=== PATIENT | female | born 1950 | race Two or more races ===

== ENCOUNTER 2023-04-22 16:28 | Inpatient (IN) | payer OTHER ==
[~2023-04-22] VITALS: Ht 162.6 cm; Wt 49.8 kg
[2023-04-22 17:53] VITALS: PULSE 77; RESP 14; O2SAT 87
[2023-04-22 18:10] LABS: Basophils # (auto) 0 10 ^3/uL (0-0.2); Basophils % (auto) 0.2 % (0.0-2.0); Eosinophils # (auto) 0 10 ^3/uL (0-0.8); Eosinophils % (auto) 0.2 % (0.0-7.0); Hematocrit 46.2 % (36.0-46.0); Hemoglobin 15.4 g/dL (12.2-16.2); Lymphocytes # (auto) 1.3 10 ^3/uL (0.4-5.4); Mean Corpuscular Hemoglobin 31.4 pg (28.0-32.0); Mean Corpuscular Hgb Conc. 33.5 g/dL (32.0-36.0); Monocytes # (auto) 1.1 10 ^3/uL (0-1.3); Monocytes % (auto) 14.1 % (0.0-12.0); Neutrophils # (auto) 5.3 10 ^3/uL (1.6-8.6); Neutrophils % (auto) 68.5 % (37.0-80.0); Nucleated Red Blood Cells % 0.1 %; Red Blood Cells 4.91 10^6/uL (4.0-5.20); Red Cell Distribution Width 14.3 % (11.8-14.3); White Blood Cell 7.8 10^3/uL (4.4-10.8)
[2023-04-22 18:24] LABS: INR 0.97 (0.9-1.15); Partial Thromboplastin Time 34.4 SEC (24.5-34.5); Prothrombin Time 10.2 sec (9.3-11.8)
[2023-04-22 18:30] LABS: Alanine Aminotransferase 26 U/L (7-40); Albumin 4.9 g/dL (3.2-4.8); Alkaline Phosphatase 59 U/L (46-116); Anion Gap 13 (5-15); Aspartate Aminotransferase 34 U/L (13-40); BUN/Creatinine Ratio 12.4 (10.0-20.0); Bilirubin, Total 0.5 mg/dL (0.2-1.0); Blood Urea Nitrogen 20 mg/dL (9-23); Calcium 9.6 mg/dL (8.7-10.4); Carbon Dioxide 27 mmol/L (20-30); Chloride 96 mmol/L (98-107); Glucose 94 mg/dL (74-106); Lipase 40 U/L (12-53); Potassium 3.9 mmol/L (3.5-5.1); Sodium 136 mmol/L (136-145); Total Protein 7.6 g/dL (5.7-8.2)
[2023-04-22] MEDS ORDERED: ACETAMINOPHEN 500 MG TAB PO PRN (19:30)
[2023-04-22] MEDS ORDERED: REMDESIVIR PER PHARMACY 0 ML IV SCH (19:30)
[2023-04-22] MEDS ORDERED: ALBUTEROL SULF HFA 90MCG INH 200DOSE IN PRN (19:30)
[2023-04-22 19:43] VITALS: PULSE 77; RESP 16; O2SAT 100
[2023-04-22 20:02] VITALS: BP 131/104; PULSE 77; RESP 16; O2SAT 97
[2023-04-22 20:09] LABS: Magnesium 2.3 mg/dL (1.6-2.6)
[2023-04-22 20:14] LABS: Thyroid Stimulating Hormone 2.36 uIU/mL (0.358-3.74)
[2023-04-22 20:18] LABS: Rapid Influenza A Negative (Negative); Rapid Influenza B Negative (Negative)
[2023-04-22 20:23] LABS: COVID19 ANTIGEN SOFIA FIA POSITIVE (NEGATIVE)
[2023-04-22 20:37] LABS: CRP High Sensitivity 1.47 mg/dL (<1.0)
[2023-04-22] MEDS ORDERED: ONDANSETRON HCL 4 MG/2 ML VIAL IV ONE ×2 (21:15→22:30)
[2023-04-22] MEDS ORDERED: PANTOPRAZOLE 40 MG/10 ML VIAL INJ IV ONE (21:15)
[2023-04-22 21:17] LABS: Basophils # (auto) 0 10 ^3/uL (0-0.2); Basophils % (auto) 0.3 % (0.0-2.0); Eosinophils # (auto) 0 10 ^3/uL (0-0.8); Hematocrit 46.9 % (36.0-46.0); Hemoglobin 15.7 g/dL (12.2-16.2); Lymphocytes # (auto) 0.8 10 ^3/uL (0.4-5.4); Lymphocytes % (auto) 13.4 % (10.0-50.0); Mean Corpuscular Hemoglobin 31.6 pg (28.0-32.0); Mean Corpuscular Hgb Conc. 33.4 g/dL (32.0-36.0); Mean Corpuscular Volume 94.7 fL (80.0-100.0); Monocytes # (auto) 0.4 10 ^3/uL (0-1.3); Monocytes % (auto) 7.1 % (0.0-12.0); Neutrophils # (auto) 4.7 10 ^3/uL (1.6-8.6); Neutrophils % (auto) 79.2 % (37.0-80.0); Red Blood Cells 4.95 10^6/uL (4.0-5.20); Red Cell Distribution Width 14.2 % (11.8-14.3); White Blood Cell 5.9 10^3/uL (4.4-10.8)
[2023-04-22 21:47] LABS: Urine Bacteria FEW /hpf (None Seen); Urine Blood 1+ /uL (Negative); Urine Clarity HAZY (Clear); Urine Color Yellow (Yellow); Urine Protein, UAD 1+ (Negative); Urine Specific Gravity 1.017 (1.001-1.035); Urine Urobilinogen Normal (Negative); Urine WBC 29 /hpf (0 - 5)
[2023-04-22] MEDS ORDERED: ONDANSETRON HCL 4 MG/2 ML VIAL IV PRN (22:00)
[2023-04-22] MEDS ORDERED: ACETAMINOPHEN 325 MG TAB PO PRN (22:00)
[2023-04-22] MEDS ORDERED: TEMAZEPAM 15 MG CAP PO PRN (22:00)
[2023-04-22] MEDS ORDERED: MORPHINE SULFATE INJ 2 MG/ml SYRG IV PRN (22:00)
[2023-04-22] MEDS: CARVEDILOL 3.125 MG TAB PO SCH ×2 (22:00→23:00)
[2023-04-22] MEDS ORDERED: NITROGLYCERIN 0.4 MG SL TAB SL PRN (22:00)
[2023-04-22] MEDS ORDERED: SODIUM CHLORIDE 0.9% 1,000 ML IV ONE (22:30)
[2023-04-22] MEDS ORDERED: METOCLOPRAMIDE HCL 5MG/ml INJ 2ml VIAL IV ONE (22:30)
[2023-04-22 23:00] VITALS: O2SAT 98
[2023-04-23 00:32] LABS: Base Excess -3.2 mmol/L (-2.0-2.0)
[2023-04-23 06:15] VITALS: O2SAT 99
[2023-04-23 06:30] LABS: Basophils # (auto) 0 10 ^3/uL (0-0.2); Basophils % (auto) 0.2 % (0.0-2.0); Eosinophils # (auto) 0 10 ^3/uL (0-0.8); Hematocrit 41.6 % (36.0-46.0); Hemoglobin 13.5 g/dL (12.2-16.2); Lymphocytes # (auto) 1.2 10 ^3/uL (0.4-5.4); Lymphocytes % (auto) 24.7 % (10.0-50.0); Mean Corpuscular Hemoglobin 30.9 pg (28.0-32.0); Mean Corpuscular Hgb Conc. 32.5 g/dL (32.0-36.0); Mean Corpuscular Volume 95.1 fL (80.0-100.0); Monocytes # (auto) 0.7 10 ^3/uL (0-1.3); Monocytes % (auto) 14.3 % (0.0-12.0); Neutrophils % (auto) 60.8 % (37.0-80.0); Nucleated Red Blood Cells % 0.2 %; Red Blood Cells 4.37 10^6/uL (4.0-5.20); Red Cell Distribution Width 14.1 % (11.8-14.3)
[2023-04-23 06:48] LABS: Alanine Aminotransferase 22 U/L (7-40); Albumin 3.8 g/dL (3.2-4.8); Alkaline Phosphatase 47 U/L (46-116); Anion Gap 11 (5-15); Aspartate Aminotransferase 29 U/L (13-40); BUN/Creatinine Ratio 16.4 (10.0-20.0); Bilirubin, Total 0.3 mg/dL (0.2-1.0); Blood Urea Nitrogen 28 mg/dL (9-23); Calcium 8.1 mg/dL (8.7-10.4); Carbon Dioxide 23 mmol/L (20-30); Chloride 103 mmol/L (98-107); Glucose 75 mg/dL (74-106); Potassium 4.2 mmol/L (3.5-5.1); Sodium 137 mmol/L (136-145); Total Protein 6.1 g/dL (5.7-8.2)
[2023-04-23] MEDS ORDERED: REMDESIVIR 200 MG in NS 210ml LOADING DOSE ADULT IV ONE (08:00)
[2023-04-23 08:52] VITALS: PULSE 69; O2SAT 98
[2023-04-23] MEDS: ZINC SULFATE 220mg CAP or TAB PO SCH (10:00)
[2023-04-23] MEDS: SERTRALINE HCL 50 MG TAB PO SCH (10:00)
[2023-04-23] MEDS ORDERED: DexAMETHasone SOD PHOS 10MG/1ML VIAL INJ IV SCH (10:00)
[2023-04-23] MEDS ORDERED: ENOXAPARIN SOD 40 MG/0.4 ML SYRINGE SC SCH (10:00)
[2023-04-23] MEDS ORDERED: ASCORBIC ACID 1,000 MG TAB PO SCH (10:00)
[2023-04-23] MEDS ORDERED: CHOLECALCIFEROL (VITD3) 2,000 UNIT CAP/TAB PO SCH (10:00)
[2023-04-23] MEDS: CARVEDILOL 3.125 MG TAB PO SCH ×2 (11:11→22:00)
[2023-04-23] MEDS ORDERED: dilTIAZem 25 MG/5 ML VIAL IV ONE (12:15)
[2023-04-23] MEDS: SODIUM CHLORIDE 0.9% 1,000 ML IV SCH (14:43)
[2023-04-23 15:35] VITALS: PULSE 63; RESP 13; O2SAT 95
[2023-04-23] MEDS: ALBUTEROL SULF HFA 90MCG INH 200DOSE IN SCH ×2 (15:35→18:35)
[2023-04-23 18:35] VITALS: PULSE 62; RESP 14; O2SAT 95
[2023-04-23 19:41] VITALS: PULSE 63; RESP 18; O2SAT 98
[2023-04-23] MEDS: ATORVASTATIN 20 MG TAB PO SCH (22:08)
[2023-04-23] MEDS: ASCORBIC ACID 500 MG TAB PO SCH (22:08)
[2023-04-24] VITALS (7 sets, daily range): BP systolic 117; BP diastolic 67; PULSE 58–72; RESP 12–20; TEMP 98.7; O2SAT 94–98
[2023-04-24] MEDS: SODIUM CHLORIDE 0.9% 1,000 ML IV SCH ×2 (03:39→16:55)
[2023-04-24 05:01] LABS: Basophils # (auto) 0 10 ^3/uL (0-0.2); Basophils % (auto) 0.2 % (0.0-2.0); Eosinophils # (auto) 0 10 ^3/uL (0-0.8); Hematocrit 39.8 % (36.0-46.0); Hemoglobin 13.4 g/dL (12.2-16.2); Lymphocytes % (auto) 23.6 % (10.0-50.0); Mean Corpuscular Hemoglobin 31.5 pg (28.0-32.0); Mean Corpuscular Hgb Conc. 33.6 g/dL (32.0-36.0); Monocytes # (auto) 0.6 10 ^3/uL (0-1.3); Monocytes % (auto) 14.4 % (0.0-12.0); Neutrophils # (auto) 2.6 10 ^3/uL (1.6-8.6); Neutrophils % (auto) 61.8 % (37.0-80.0); Nucleated Red Blood Cells % 0.2 %; Red Blood Cells 4.24 10^6/uL (4.0-5.20); Red Cell Distribution Width 14.2 % (11.8-14.3); White Blood Cell 4.2 10^3/uL (4.4-10.8)
[2023-04-24 05:24] LABS: Alanine Aminotransferase 19 U/L (7-40); Albumin 3.8 g/dL (3.2-4.8); Alkaline Phosphatase 44 U/L (46-116); Anion Gap 4 (5-15); Aspartate Aminotransferase 28 U/L (13-40); Blood Urea Nitrogen 25 mg/dL (9-23); Calcium 8.4 mg/dL (8.7-10.4); Carbon Dioxide 27 mmol/L (20-30); Chloride 107 mmol/L (98-107); Glucose 88 mg/dL (74-106); Magnesium 2.1 mg/dL (1.6-2.6); Potassium 4.4 mmol/L (3.5-5.1); Sodium 138 mmol/L (136-145)
[2023-04-24 05:25] LABS: Bilirubin, Total 0.2 mg/dL (0.2-1.0); Total Protein 5.9 g/dL (5.7-8.2)
[2023-04-24] MEDS: ALBUTEROL SULF HFA 90MCG INH 200DOSE IN SCH ×3 (06:00→22:29)
[2023-04-24] MEDS: ENOXAPARIN SOD 30 MG/0.3 ML SYRINGE SC SCH (10:00)
[2023-04-24] MEDS ORDERED: LORazepam 2MG/ML-1ML VIAL IV PRN (10:00)
[2023-04-24] MEDS: CHOLECALCIFEROL (VITD3) 1,000UNIT=25mCg TAB PO SCH (10:09)
[2023-04-24] MEDS: DexAMETHasone SOD PHOS 10MG/1ML VIAL INJ IV SCH (10:09)
[2023-04-24] MEDS: SERTRALINE HCL 50 MG TAB PO SCH (10:09)
[2023-04-24] MEDS: ASCORBIC ACID 500 MG TAB PO SCH ×2 (10:09→22:49)
[2023-04-24] MEDS: ZINC SULFATE 220mg CAP or TAB PO SCH (10:09)
[2023-04-24] MEDS: CARVEDILOL 3.125 MG TAB PO SCH ×2 (10:16→22:48)
[2023-04-24 11:46] LABS: LDL Cholesterol 29 mg/dL (< 100); Triglycerides 70 mg/dL (< 150)
[2023-04-24 11:48] LABS: Cholesterol 72 mg/dL (< 200); HDL Cholesterol 27 mg/dL (40-59)
[2023-04-24 12:06] LABS: Folate (Folic Acid) 16.35 ng/mL (>5.38)
[2023-04-24] MEDS ORDERED: ALBU1AER4 INH (12:51)
[2023-04-24] MEDS ORDERED: HYDR-4072 PO (12:51)
[2023-04-24] MEDS ORDERED: MONT-8 PO (12:51)
[2023-04-24] MEDS ORDERED: CARV3.1240 PO (12:51)
[2023-04-24] MEDS ORDERED: SERT25TA28 PO (12:51)
[2023-04-24] MEDS ORDERED: ROSU1TAB12 PO (12:51)
[2023-04-24 19:45] LABS: Free T3 1.45 pg/mL (2.3-4.2); Free T4 (Free Thyroxine) 0.87 ng/dL (0.89-1.76)
[2023-04-24] MEDS: REMDESIVIR 100mg 100 MG in SODIUM CHL 0.9% 230 ML IV SCH (19:54)
[2023-04-24] MEDS: ATORVASTATIN 20 MG TAB PO SCH (22:49)
[2023-04-25] VITALS (8 sets, daily range): BP systolic 137–142; BP diastolic 61–74; PULSE 58–78; RESP 15–20; TEMP 97.5–98; O2SAT 96–100
[2023-04-25] MEDS ORDERED: HYDROcodone-ACET 7.5/325MG TAB PO PRN (03:30)
[2023-04-25] MEDS: SODIUM CHLORIDE 0.9% 1,000 ML IV SCH (06:15)
[2023-04-25] MEDS: ALBUTEROL SULF HFA 90MCG INH 200DOSE IN SCH ×2 (06:28→14:30)
[2023-04-25 06:40] LABS: Basophils # (auto) 0 10 ^3/uL (0-0.2); Basophils % (auto) 0.2 % (0.0-2.0); Eosinophils # (auto) 0 10 ^3/uL (0-0.8); Eosinophils % (auto) 0.1 % (0.0-7.0); Hematocrit 35.3 % (36.0-46.0); Hemoglobin 11.8 g/dL (12.2-16.2); Lymphocytes % (auto) 38.4 % (10.0-50.0); Mean Corpuscular Hemoglobin 31.5 pg (28.0-32.0); Mean Corpuscular Hgb Conc. 33.3 g/dL (32.0-36.0); Mean Corpuscular Volume 94.6 fL (80.0-100.0); Monocytes # (auto) 0.6 10 ^3/uL (0-1.3); Monocytes % (auto) 12.1 % (0.0-12.0); Neutrophils # (auto) 2.6 10 ^3/uL (1.6-8.6); Neutrophils % (auto) 49.2 % (37.0-80.0); Nucleated Red Blood Cells % 0.2 %; Red Blood Cells 3.74 10^6/uL (4.0-5.20); Red Cell Distribution Width 14.4 % (11.8-14.3); White Blood Cell 5.3 10^3/uL (4.4-10.8)
[2023-04-25 07:06] LABS: Varicella Zoster IgG Antibody 847 index (Immune >165)
[2023-04-25 07:07] LABS: Alanine Aminotransferase 18 U/L (7-40); Albumin 3.4 g/dL (3.2-4.8); Alkaline Phosphatase 36 U/L (46-116); Anion Gap 4 (5-15); Aspartate Aminotransferase 28 U/L (13-40); BUN/Creatinine Ratio 21.1 (10.0-20.0); Blood Urea Nitrogen 16 mg/dL (9-23); Calcium 8.1 mg/dL (8.7-10.4); Carbon Dioxide 27 mmol/L (20-30); Chloride 110 mmol/L (98-107); Glucose 87 mg/dL (74-106); Potassium 4.7 mmol/L (3.5-5.1); Sodium 141 mmol/L (136-145)
[2023-04-25 07:08] LABS: Bilirubin, Total 0.2 mg/dL (0.2-1.0); Total Protein 5.2 g/dL (5.7-8.2)
[2023-04-25] MEDS: DexAMETHasone SOD PHOS 10MG/1ML VIAL INJ IV SCH (09:59)
[2023-04-25] MEDS: CHOLECALCIFEROL (VITD3) 1,000UNIT=25mCg TAB PO SCH (10:00)
[2023-04-25] MEDS: ASCORBIC ACID 500 MG TAB PO SCH (10:00)
[2023-04-25] MEDS: ZINC SULFATE 220mg CAP or TAB PO SCH (10:01)
[2023-04-25] MEDS: SERTRALINE HCL 50 MG TAB PO SCH (10:01)
[2023-04-25] MEDS: CARVEDILOL 3.125 MG TAB PO SCH (10:02)
[2023-04-25] MEDS: ENOXAPARIN SOD 30 MG/0.3 ML SYRINGE SC SCH (10:02)
[2023-04-25] MEDS: REMDESIVIR 100mg 100 MG in SODIUM CHL 0.9% 230 ML IV SCH (15:00)
[2023-04-26 09:18] LABS: Hepatitis B Surface Antigen Negative (Negative)
[2023-04-26 09:38] LABS: Hepatitis C Antibody Negative (Negative)
[2023-04-26 14:06] LABS: Varicella Zoster IgM Antibody <0.91 index (0.00-0.90)
== END 2023-04-25 19:10 | disposition home or self-care (01) | DRG 177 ==
LOC: ER 16:28 → TELE 22:26 → TELE-CENTR 04-24 10:33
PROVIDERS: ADMIT Internal Medicine Pulmonary Disease; ATTEND Student in an Organized Health Care Education/Training Program
PROC: XW033E5 Introduction of Remdesivir Anti-infective into Peripheral Vein, Percutaneous Approach, New Technology Group 5 (ICD-10-PCS; principal; 2023-04-23)
DX: U07.1 COVID-19 (principal); J96.01 Acute respiratory failure with hypoxia; E87.20 Acidosis, unspecified; N17.9 Acute kidney failure, unspecified; E44.0 Moderate protein-calorie malnutrition; Z68.1 Body mass index [BMI] 19.9 or less, adult; J45.909 Unspecified asthma, uncomplicated; I10 Essential (primary) hypertension; G43.909 Migraine, unspecified, not intractable, without status migrainosus; F32.A Depression, unspecified; F41.9 Anxiety disorder, unspecified; E03.9 Hypothyroidism, unspecified; E07.81 Sick-euthyroid syndrome; G51.0 Bell's palsy; Z90.710 Acquired absence of both cervix and uterus; Z87.891 Personal history of nicotine dependence
CPT/HCPCS: 36415; 36600; 70450; 71045; 71275; 76775; 80053; 80061; 81001; 82306; 82607; 82746; 82805; 83036; 83605; 83615; 83690; 83735; 83880; 84439; 84443; 84481; 85025; 85379; 85610; 85730; 86141; 86787; 86803; 87081; 87340; 87426; 87804; 93970; 94640; 96374; 96375; C9113; G0378; J1100; J2405